=== PATIENT | female | born 2000 | race Caucasian/White ===

== ENCOUNTER 2019-02-27 23:25 | Emergency (ER) | payer OTHER ==
--- NOTE | 2019-02-28 00:41 | ED ---
General Adult HPI - General Source: patient Mode of arrival: wheelchair Limitations: no limitations <Bobby Etienne Enrique - Last Filed: 02/28/19 00:41> <OlvinkvngNaren - Last Filed: 02/28/19 03:36> - General Chief complaint: Abdominal Pain Stated complaint: Abdominal Pain Time Seen by Provider: 02/28/19 00:31 - History of Present Illness Initial comments: Dictation was produced using [employer] dictation software. please excuse any grammatical, word or spelling errors. Chief Complaint: 18-year-old female presents with right lower quadrant abdominal pain 1 day. History of Present Illness: Patient is a 18-year-old female she denies any past medical history. Patient states that she has been having suprapubic/right lower quadrant pain 1 day. Patient has any nausea or vomiting. She states pain radiates to her back. Patient was concerned that she is having appendicitis. She denies any fever however does complain of some chills. Patient has any urinary symptoms. Patient denies however is sexually active. She denies history of sexually transmitted disease. Patient reports that her pain is worse with palpation. She states pain is more localized to her right abdomen radiation to the back. She also reports dyschezia. The ROS documented in this emergency department record has been reviewed and confirmed by me. Those systems with pertinent positive or negative responses have been documented in the HPI. All other systems are other negative and/or noncontributory. PHYSICAL EXAM: General Impression: Alert and oriented x3, not in acute distress HEENT: Normocephalic atraumatic, extra-ocular movements intact, pupils equal and reactive to light bilaterally, mucous membranes moist. Cardiovascular: Heart regular rate and rhythm, S1&S2 audible, no murmurs, rubs or gallops Chest: Lungs clear to auscultation bilaterally, no rhonchi, no wheeze, no rales Abdomen: Tenderness to palpation over the suprapubic area. No rebound tenderness Musculoskeletal: Pulses present and equal in all extremities, no peripheral edema Motor: no focal deficits noted Neurological: CN II-XII grossly intact, no focal motor or sensory deficits noted Skin: Intact with no visualized rashes Psych: Normal affect and mood ED course: 18 yo Female presents with clinical presentation concerning for acute appendicitis versus surgical abdomen. As upon arrival are within acceptable limits. Patient is sent out to Dr. Small for follow-up of lab studies and imaging studies. (Bobby Etienne) - Related Data Home Medications Medication Instructions Recorded Confirmed No Known Home Medications 12/27/18 02/28/19 Allergies Allergy/AdvReac Type Severity Reaction Status Date / Time levofloxacin [From Levaquin] Allergy Unknown Verified 12/27/18 21:45 sumatriptan [From Imitrex] Allergy Unknown Verified 12/27/18 21:45 sumatriptan succinate Allergy Unknown Verified 12/27/18 21:45 [From Imitrex] Review of Systems ROS Other: All systems not noted in ROS Statement are negative. <Bobby Etienne - Last Filed: 02/28/19 00:41> ROS Other: All systems not noted in ROS Statement are negative. <Naren Cast - Last Filed: 02/28/19 03:36> ROS Statement: Those systems with pertinent positive or pertinent negative responses have been documented in the HPI. Past Medical History Past Medical History: Asthma Additional Past Medical History / Comment(s): migraines History of Any Multi-Drug Resistant Organisms: None Reported Past Surgical History: Adenoidectomy, Tonsillectomy Additional Past Surgical History / Comment(s): cyst from arm Past Psychological History: Anxiety Smoking Status: Current every day smoker Past Alcohol Use History: Rare Past Drug Use History: None Reported <Bobby Etienne - Last Filed: 02/28/19 00:41> General Exam Limitations: no limitations <Bobby Etienne - Last Filed: 02/28/19 00:41> Course Vital Signs 02/28/19 02/28/19 00:21 01:44 Temperature 97.7 F Pulse Rate 86 91 Respiratory 20 18 Rate Blood Pressure 123/85 116/86 O2 Sat by Pulse 96 99 Oximetry Medical Decision Making - Lab Data Result diagrams: 02/28/19 00:57 02/28/19 00:57 <Naren Cast - Last Filed: 02/28/19 03:36> - Lab Data Lab Results 02/28/19 02/28/19 02/28/19 Range/Units 00:57 00:57 00:57 WBC 11.1 H (4.0-11.0) k/uL RBC 4.68 (3.80-5.40) m/uL Hgb 14.2 (11.4-16.0) gm/dL Hct 41.7 (34.0-46.0) % MCV 89.1 (80.0-100.0) fL MCH 30.3 (25.0-35.0) pg MCHC 34.0 (31.0-37.0) g/dL RDW 13.7 (11.5-15.5) % Plt Count 282 (150-450) k/uL Neutrophils % 62 % Lymphocytes % 26 % Monocytes % 5 % Eosinophils % 5 % Basophils % 0 % Neutrophils # 6.9 (1.3-7.7) k/uL Lymphocytes # 2.9 (1.0-4.8) k/uL Monocytes # 0.6 (0-1.0) k/uL Eosinophils # 0.6 (0-0.7) k/uL Basophils # 0.0 (0-0.2) k/uL Sodium 140 (137-145) mmol/L Potassium 3.8 (3.5-5.1) mmol/L Chloride 108 H (98-107) mmol/L Carbon Dioxide 24 (22-30) mmol/L Anion Gap 8 mmol/L BUN 12 (7-17) mg/dL Creatinine 0.70 (0.52-1.04) mg/dL Est GFR (CKD-EPI)AfAm >90 (>60 ml/min/1.73 sqM) Est GFR (CKD-EPI)NonAf >90 (>60 ml/min/1.73 sqM) Glucose 94 (74-99) mg/dL Calcium 9.9 (8.4-10.2) mg/dL Total Bilirubin 0.4 (0.2-1.3) mg/dL AST 17 (14-36) U/L ALT 14 (9-52) U/L Alkaline Phosphatase 74 (38-126) U/L Total Protein 7.3 (6.3-8.2) g/dL Albumin 4.6 (3.5-5.0) g/dL Amylase 33 (30-110) U/L Lipase 49 (23-300) U/L Urine Color Urine Appearance (Clear) Urine pH (5.0-8.0) Ur Specific Bath (1.001-1.035) Urine Protein (Negative) Urine Glucose (UA) (Negative) Urine Ketones (Negative) Urine Blood (Negative) Urine Nitrite (Negative) Urine Bilirubin (Negative) Urine Urobilinogen (<2.0) mg/dL Ur Leukocyte Esterase (Negative) Urine HCG, Qual Not Detected (Not Detectd) 02/28/19 Range/Units 00:57 WBC (4.0-11.0) k/uL RBC (3.80-5.40) m/uL Hgb (11.4-16.0) gm/dL Hct (34.0-46.0) % MCV (80.0-100.0) fL MCH (25.0-35.0) pg MCHC (31.0-37.0) g/dL RDW (11.5-15.5) % Plt Count (150-450) k/uL Neutrophils % % Lymphocytes % % Monocytes % % Eosinophils % % Basophils % % Neutrophils # (1.3-7.7) k/uL Lymphocytes # (1.0-4.8) k/uL Monocytes # (0-1.0) k/uL Eosinophils # (0-0.7) k/uL Basophils # (0-0.2) k/uL Sodium (137-145) mmol/L Potassium (3.5-5.1) mmol/L Chloride (98-107) mmol/L Carbon Dioxide (22-30) mmol/L Anion Gap mmol/L BUN (7-17) mg/dL Creatinine (0.52-1.04) mg/dL Est GFR (CKD-EPI)AfAm (>60 ml/min/1.73 sqM) Est GFR (CKD-EPI)NonAf (>60 ml/min/1.73 sqM) Glucose (74-99) mg/dL Calcium (8.4-10.2) mg/dL Total Bilirubin (0.2-1.3) mg/dL AST (14-36) U/L ALT (9-52) U/L Alkaline Phosphatase (38-126) U/L Total Protein (6.3-8.2) g/dL Albumin (3.5-5.0) g/dL Amylase (30-110) U/L Lipase (23-300) U/L Urine Color Yellow Urine Appearance Clear (Clear) Urine pH 6.5 (5.0-8.0) Ur Specific Bath 1.031 (1.001-1.035) Urine Protein Trace H (Negative) Urine Glucose (UA) Negative (Negative) Urine Ketones Negative (Negative) Urine Blood Negative (Negative) Urine Nitrite Negative (Negative) Urine Bilirubin Negative (Negative) Urine Urobilinogen 2.0 (<2.0) mg/dL Ur Leukocyte Esterase Negative (Negative) Urine HCG, Qual (Not Detectd) Disposition <Bobby Etienne - Last Filed: 02/28/19 00:41> Is patient prescribed a controlled substance at d/c from ED?: No <Naren Cast - Last Filed: 02/28/19 03:36> Clinical Impression: Abdominal pain, Ovarian cyst Disposition: HOME SELF-CARE Condition: Good Instructions (If sedation given, give patient instructions): Ovarian Cyst (ED), Abdominal Pain (ED) Referrals: None,Stated [Primary Care Provider] - 1-2 days Kirstie Munoz DO [Doctor of Osteopathic Medicine] - 1-2 days
[2019-02-28] MEDS ORDERED: MORPHINE SULFATE 4 MG/ML SYRINGE IVP STA (00:42)
[2019-02-28 01:12] LABS: Appearance,Urine Clear (Clear); Bilirubin,Urine Negative (Negative); Blood,Urine Negative (Negative); Color,Urine Yellow; Glucose,Urine (UA) Negative (Negative); Ketones,Urine Negative (Negative); Leukocyte Esterase,Urine Negative (Negative); Nitrite,Urine Negative (Negative); PH, Urine 6.5 (5.0-8.0); Protein,Urine Trace (Negative); Specific Gravity,Urine 1.031 (1.001-1.035)
[2019-02-28 01:14] LABS: Basophils % (A) 0 %; Eosinophils # (A) 0.6 k/uL (0-0.7); Eosinophils % (A) 5 %; HCT 41.7 % (34.0-46.0); HGB 14.2 gm/dL (11.4-16.0); Lymphocytes # (A) 2.9 k/uL (1.0-4.8); Lymphocytes % (A) 26 %; MCH 30.3 pg (25.0-35.0); MCV 89.1 fL (80.0-100.0); Monocytes # (A) 0.6 k/uL (0-1.0); Monocytes % (A) 5 %; Neutrophils # (A) 6.9 k/uL (1.3-7.7); Neutrophils % (A) 62 %; Platelet Count 282 k/uL (150-450); RBC 4.68 m/uL (3.80-5.40); RDW 13.7 % (11.5-15.5); WBC 11.1 k/uL (4.0-11.0)
[2019-02-28 01:27] LABS: ALT 14 U/L (9-52); AST 17 U/L (14-36); Albumin 4.6 g/dL (3.5-5.0); Alkaline Phosphatase 74 U/L (38-126); Amylase 33 U/L (30-110); Anion Gap 8 mmol/L; Blood Urea Nitrogen 12 mg/dL (7-17); Calcium 9.9 mg/dL (8.4-10.2); Carbon Dioxide 24 mmol/L (22-30); Chloride 108 mmol/L (98-107); Glucose 94 mg/dL (74-99); Lipase 49 U/L (23-300); Potassium 3.8 mmol/L (3.5-5.1); Sodium 140 mmol/L (137-145); Total Bilirubin 0.4 mg/dL (0.2-1.3); Total Protein 7.3 g/dL (6.3-8.2)
[2019-02-28 01:45] VITALS: RESP 18
--- NOTE | 2019-02-28 02:26 | CT ---
EXAM: CT Abdomen and Pelvis With Intravenous Contrast CLINICAL HISTORY: abdominal pain TECHNIQUE: Axial computed tomography images of the abdomen and pelvis with intravenous contrast. DLP is 923.5 mGy-cm. This CT exam was performed using one or more of the following dose reduction techniques: automated exposure control, adjustment of the mA and/or kV according to patient size, and/or use of iterative reconstruction technique. Coronal and sagittal reconstructions are performed COMPARISON: No relevant prior studies available. FINDINGS: Lung bases: Unremarkable. No mass. No consolidation. ABDOMEN: Liver: 1.5 x 2.5 cm hypoenhancing lesion in anterior left lobe the liver, likely a hemangioma. Gallbladder and bile ducts: Unremarkable. No calcified stones. No ductal dilation. Pancreas: Unremarkable. No mass. No ductal dilation. Spleen: Unremarkable. No splenomegaly. Adrenals: Unremarkable. No mass. Kidneys and ureters: Unremarkable. No solid mass. No hydronephrosis. Stomach and bowel: Unremarkable. No obstruction. No mucosal thickening. PELVIS: Appendix: Not definitively visualized. Bladder: Unremarkable. No mass. Reproductive: 2 adjacent cystic lesions of right adnexa, together measuring about 6 X 5.1 x 2.7 cm, best seen on series 201 image 75. ABDOMEN and PELVIS: Intraperitoneal space: Unremarkable. No free air. No significant fluid collection. Bones/joints: No acute fracture. No dislocation. Soft tissues: Unremarkable. Vasculature: Unremarkable. No abdominal aortic aneurysm. Lymph nodes: Unremarkable. No enlarged lymph nodes. IMPRESSION: 2 adjacent cystic lesions of right adnexa, together measuring about 6 X 5. 1 x 2.7 cm, likely ovarian cysts. No free pelvic fluid.
[2019-02-28] MEDS ORDERED: MORPHINE SULFATE 4 MG/ML SYRINGE IV STA (03:35)
[2019-02-28 03:52] VITALS: BP 136/98; PULSE 90; TEMP 98.1
== END 2019-02-28 03:51 | disposition home or self-care (01) ==
LOC: EC 23:25
DX: N83.201 Unspecified ovarian cyst, right side (principal); F17.200 Nicotine dependence, unspecified, uncomplicated; Z88.1 Allergy status to other antibiotic agents; Z88.8 Allergy status to other drugs, medicaments and biological substances
CPT/HCPCS: 99284 ×2; 96374 ×2; 96376 ×2; 36415; 80053; 82150; 83690; 85025; 81003; 81025; 87086; 74177; J2270; Q9967

== ENCOUNTER → 2019-10-27 | Outpatient (CLI) | payer OTHER ==
--- NOTE | 2019-10-28 05:00 | MR ---
EXAMINATION TYPE: MR brain wo con DATE OF EXAM: 10/27/2019 COMPARISON: Correlation CT 12/28/2018 HISTORY: 19 year old female Headaches, nausea TECHNIQUE: Multiplanar, multisequence images of the brain and brainstem were acquired without IV con trast. Diffusion weighted imaging is performed. FINDINGS: No evidence for acute infarction, hemorrhage, mass, mass effect, midline shift, herniation, effacemen t of basal cisterns, or extra-axial fluid collection. The ventricles and sulci are age-appropriate. Major intracranial flow voids are intact. T2/FLAIR weighted sequences show no white matter signal abnormality. Midline structures demonstrate normal morphology. Minimal 2 mm of right-sided cerebellar tonsillar ec topia. Otherwise, the craniocervical junction is normal. Leftward nasal septal deviation with scattered mild mucosal thickening ethmoid air cells. Globes appe ar intact. IMPRESSION: 1. Minimal, benign right-sided cerebellar tonsillar ectopia of 2 mm. 2. Otherwise, no intracranial abnormality seen. 3. Leftward nasal septal deviation and mild chronic ethmoid sinus disease.
== END | disposition home or self-care (01) ==
LOC: RADMRIMAIN 15:43
PROVIDERS: ATTEND Family Medicine
DX: Q04.8 Other specified congenital malformations of brain (principal)
CPT/HCPCS: 70551

== ENCOUNTER 2019-12-11 09:22 | Emergency (ER) | payer OTHER ==
[2019-12-11 09:27] VITALS: BP 137/93; PULSE 102; RESP 18; TEMP 98.1
--- NOTE | 2019-12-11 09:52 | ED ---
Skin/Abscess/FB HPI - General Chief complaint: Skin/Abscess/Foreign Body Stated complaint: poss allergic reaction Time Seen by Provider: 12/11/19 09:30 Source: patient, RN notes reviewed Mode of arrival: ambulatory Limitations: no limitations - History of Present Illness Initial comments: 19-year-old female presents emergency Department chief complaint of bilateral hand irritation, rash. Patient states that this started 2 weeks ago after work. 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 Patient states that the rashes not improved. She's tried some steroid cream which seems to help her batista were also some generic lotions. Patient denies any history of skin disorders she denies any new harsh chemicals that she was exposed to no new medications. - Related Data Previous Rx's Medication Instructions Recorded Clobetasol Propionate [Temovate 1 applic TOPICAL BID #30 gm 12/11/19 0.05% Oint] Allergies Allergy/AdvReac Type Severity Reaction Status Date / Time levofloxacin [From Levaquin] Allergy Unknown Verified 12/11/19 09:27 sumatriptan [From Imitrex] Allergy Unknown Verified 12/11/19 09:27 sumatriptan succinate Allergy Unknown Verified 12/11/19 09:27 [From Imitrex] Review of Systems ROS Statement: Those systems with pertinent positive or pertinent negative responses have been documented in the HPI. ROS Other: All systems not noted in ROS Statement are negative. Past Medical History Past Medical History: Asthma Additional Past Medical History / Comment(s): migraines History of Any Multi-Drug Resistant Organisms: None Reported Past Surgical History: Adenoidectomy, Tonsillectomy Additional Past Surgical History / Comment(s): cyst from arm Past Psychological History: Anxiety Smoking Status: Current every day smoker Past Alcohol Use History: Rare Past Drug Use History: None Reported General Exam Limitations: no limitations General appearance: alert, in no apparent distress Head exam: Present: atraumatic, normocephalic, normal inspection Eye exam: Present: normal appearance, PERRL, EOMI. Absent: scleral icterus, conjunctival injection, periorbital swelling ENT exam: Present: normal exam, normal oropharynx, mucous membranes moist Neck exam: Present: normal inspection. Absent: tenderness, meningismus, lymphadenopathy Respiratory exam: Present: normal lung sounds bilaterally. Absent: respiratory distress, wheezes, rales, rhonchi, stridor Cardiovascular Exam: Present: regular rate, normal rhythm, normal heart sounds. Absent: systolic murmur, diastolic murmur, rubs, gallop, clicks Skin exam: Present: warm, dry, intact, normal color, rash (Bilateral hands across MCP region there is dry scaly rash noted) Course Vital Signs 12/11/19 09:22 Temperature 98.1 F Pulse Rate 102 H Respiratory 18 Rate Blood Pressure 137/93 O2 Sat by Pulse 98 Oximetry Medical Decision Making - Medical Decision Making Patient appears to have atopic dermatitis. We have given steroid cream advise use Eucerin and Aquaphor for lotions. Disposition Clinical Impression: Atopic dermatitis Disposition: HOME SELF-CARE Condition: Stable Instructions (If sedation given, give patient instructions): Eczema (ED) Additional Instructions: Please return to the Emergency Department if symptoms worsen or any other co ncerns. Prescriptions: Clobetasol Propionate [Temovate 0.05% Oint] 1 applic TOPICAL BID #30 gm Is patient prescribed a controlled substance at d/c from ED?: No Referrals: Nel Sanders MD [Primary Care Provider] - 1-2 days Time of Disposition: 09:51
== END 2019-12-11 10:03 | disposition home or self-care (01) ==
LOC: EC 09:22
DX: L20.9 Atopic dermatitis, unspecified (principal); F17.200 Nicotine dependence, unspecified, uncomplicated; Z88.1 Allergy status to other antibiotic agents; Z88.8 Allergy status to other drugs, medicaments and biological substances; Z98.890 Other specified postprocedural states
CPT/HCPCS: 99282

== ENCOUNTER 2019-12-31 11:30 | Emergency (ER) | payer OTHER ==
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
[2019-12-31 12:38] VITALS: BP 137/78; PULSE 90; RESP 16; TEMP 98.1
== END 2019-12-31 12:36 | disposition home or self-care (01) ==
LOC: EC 11:30
DX: T25.122A Burn of first degree of left foot, initial encounter (principal); T23.101A Burn of first degree of right hand, unspecified site, initial encounter; T31.0 Burns involving less than 10% of body surface; F17.200 Nicotine dependence, unspecified, uncomplicated; Z88.1 Allergy status to other antibiotic agents; Z88.8 Allergy status to other drugs, medicaments and biological substances; X10.2XXA Contact with fats and cooking oils, initial encounter; Y93.G3 Activity, cooking and baking
CPT/HCPCS: 16020; 99283

== ENCOUNTER → 2020-05-20 | Outpatient (CLI) | payer OTHER ==
--- NOTE | 2020-05-20 23:27 | XR ---
EXAMINATION TYPE: XR hand complete bilateral DATE OF EXAM: 05/20/2020 CLINICAL HISTORY: Bilateral hand pain TECHNIQUE: Frontal, lateral and oblique images of the bilateral hands are obtained. COMPARISON: Left hand radiograph 12/08/2009 FINDINGS: There is no acute fracture/dislocation evident in the bilateral hands. The joint spaces ap pear within normal limits. Normal osseous mineralization. The overlying soft tissue appears unremar kable. IMPRESSION: Unremarkable radiographs of the bilateral hands.
--- NOTE | 2020-05-21 09:38 | XR ---
EXAMINATION TYPE: XR Hip Bilateral Complete, XR femur bilateral DATE OF EXAM: 05/20/2020 CLINICAL HISTORY: Bilateral hip pain TECHNIQUE: AP and frogleg views of the bilateral hips are obtained. 2 views of the bilateral femurs are obtained. COMPARISON: None. FINDINGS: There is no acute fracture or dislocation of the bilateral hips. The hip joint space appe ars within normal limits. The bilateral knee joints are unremarkable. There is an eccentric cortical 1.8 cm nonaggressive sclerotic focus of the distal posterior left femur, likely benign fibrous cortic al defect. Normal osseous mineralization. The overlying soft tissue appears unremarkable. IMPRESSION: 1. There is no acute fracture or dislocation of the bilateral hips or bilateral femurs. 2. Distal left femoral 1.8 cm nonaggressive lesion likely benign fibrous cortical defect.
== END | disposition home or self-care (01) ==
LOC: RADXRMAIN 14:29
PROVIDERS: ATTEND Family Medicine
DX: M79.641 Pain in right hand (principal); M79.642 Pain in left hand; M89.8X5 Other specified disorders of bone, thigh; M25.551 Pain in right hip; M25.552 Pain in left hip
CPT/HCPCS: 73521

== ENCOUNTER 2020-08-18 13:35 | Emergency (ER) | payer OTHER ==
[2020-08-18 13:48] VITALS: RESP 16; TEMP 99.1
[2020-08-18] MEDS ORDERED: SODIUM CHLORIDE 0.9% 1,000 ML IV STA (14:08)
--- NOTE | 2020-08-18 14:10 | ED ---
General Adult HPI - General Chief complaint: Abdominal Pain Stated complaint: Abd Pain Time Seen by Provider: 08/18/20 14:01 Source: patient, RN notes reviewed Mode of arrival: ambulatory Limitations: no limitations - History of Present Illness Initial comments: 19-year-old female with a past medical history of ovarian cyst presents to the emergency room for a chief complaint of abdominal pain. Patient reports she has lower abdominal pain for the past 3 days. She denies fever. She denies nausea vomiting diarrhea. States it is across her lower abdomen on both sides. Patient states she has had an over this feels similar. However patient reports that pain seems to be worsening. She denies any fevers.Patient has no other complaints at this time including shortness of breath, chest pain, nausea or vomiting, headache, or visual changes. - Related Data Home Medications Medication Instructions Recorded Confirmed Albuterol Sulfate [Proair Hfa] 1 - 2 puff INHALATION RT-Q6H PRN 08/18/20 08/18/20 [id number]-Zevv [id number] 2 tab PO HS PRN 08/18/20 08/18/20 [Excedrin] Ereabds-Zqag-Zqre [id number] 3 tab PO QAM PRN 08/18/20 08/18/20 [Excedrin] Allergies Allergy/AdvReac Type Severity Reaction Status Date / Time levofloxacin [From Levaquin] Allergy Unknown Verified 08/18/20 16:19 sumatriptan [From Imitrex] Allergy Unknown Verified 08/18/20 16:19 sumatriptan succinate Allergy Unknown Verified 08/18/20 16:19 [From Imitrex] Review of Systems ROS Statement: Those systems with pertinent positive or pertinent negative responses have been documented in the HPI. ROS Other: All systems not noted in ROS Statement are negative. Past Medical History Past Medical History: Asthma Additional Past Medical History / Comment(s): migraines ,ovarian cyst History of Any Multi-Drug Resistant Organisms: None Reported Past Surgical History: Adenoidectomy, Tonsillectomy Additional Past Surgical History / Comment(s): cyst from arm Past Psychological History: Anxiety, Depression Smoking Status: Current every day smoker Past Alcohol Use History: None Reported Past Drug Use History: None Reported General Exam Limitations: no limitations General appearance: alert, in no apparent distress Head exam: Present: atraumatic, normocephalic, normal inspection Eye exam: Present: normal appearance, PERRL, EOMI. Absent: scleral icterus, conjunctival injection, periorbital swelling ENT exam: Present: normal exam, mucous membranes moist Neck exam: Present: normal inspection, full ROM. Absent: tenderness, meningismus, lymphadenopathy Respiratory exam: Present: normal lung sounds bilaterally. Absent: respiratory distress, wheezes, rales, rhonchi, stridor Cardiovascular Exam: Present: regular rate, normal rhythm, normal heart sounds. Absent: systolic murmur, diastolic murmur, rubs, gallop, clicks GI/Abdominal exam: Present: soft, tenderness (generalized lower abdominal tenderness, ), normal bowel sounds. Absent: distended, guarding, rebound, rigid Neurological exam: Present: alert Course Vital Signs 08/18/20 13:46 Temperature 99.1 F Pulse Rate 93 Respiratory 16 Rate Blood Pressure 124/75 O2 Sat by Pulse 99 Oximetry Medical Decision Making - Medical Decision Making Vitals are stable. Patient is afebrile. States she has been checking her temperatures at home for work and has not had any. CBC shows no leukocytosis. CMP unremarkable. Urinalysis unremarkable. Ultrasound shows a left ovarian cyst with free fluid within the cul-de-sac. Possible ruptured ovarian cyst. Appendix is incompletely visualized. Portions visualized appear normal. Acute appendicitis cannot be excluded. No is made of small lymph nodes in the right inguinal region. At this time reevaluated patient and did recommend a CAT scan to rule out appendicitis. Patient states she is hungry and wants to go home. She is feeling better after pain meds. She reports that she is aware I cannot rule out appendicitis without doing the CAT scan and is aware of these risks. If patient has fevers or any worsening symptoms she is agreeable to returning to the emergency room. She is aware she is welcome at any time.I discussed this case with attending Dr. Benitez who agrees with this assessment and treatment plan. - Lab Data Result diagrams: 08/18/20 14:08 08/18/20 14:08 Lab Results 08/18/20 08/18/20 08/18/20 Range/Units 14:08 14:08 14:08 WBC 8.6 (4.0-11.0) k/uL RBC 4.43 (3.80-5.40) m/uL Hgb 14.3 (11.4-16.0) gm/dL Hct 41.2 (34.0-46.0) % MCV 92.9 (80.0-100.0) fL MCH 32.3 (25.0-35.0) pg MCHC 34.7 (31.0-37.0) g/dL RDW 12.7 (11.5-15.5) % Plt Count 230 (150-450) k/uL MPV 7.3 Neutrophils % 61 % Lymphocytes % 28 % Monocytes % 5 % Eosinophils % 3 % Basophils % 1 % Neutrophils # 5.3 (1.3-7.7) k/uL Lymphocytes # 2.4 (1.0-4.8) k/uL Monocytes # 0.4 (0-1.0) k/uL Eosinophils # 0.3 (0-0.7) k/uL Basophils # 0.1 (0-0.2) k/uL Sodium (137-145) mmol/L Potassium (3.5-5.1) mmol/L Chloride (98-107) mmol/L Carbon Dioxide (22-30) mmol/L Anion Gap mmol/L BUN (7-17) mg/dL Creatinine (0.52-1.04) mg/dL Est GFR (CKD-EPI)AfAm (>60 ml/min/1.73 sqM) Est GFR (CKD-EPI)NonAf (>60 ml/min/1.73 sqM) Glucose (74-99) mg/dL Calcium (8.4-10.2) mg/dL Total Bilirubin (0.2-1.3) mg/dL AST (14-36) U/L ALT (4-34) U/L Alkaline Phosphatase (38-126) U/L Total Protein (6.3-8.2) g/dL Albumin (3.5-5.0) g/dL Amylase (30-110) U/L Lipase (23-300) U/L Urine Color Yellow Urine Appearance Cloudy H (Clear) Urine pH 5.5 (5.0-8.0) Ur Specific [place] 1.028 (1.001-1.035) Urine Protein Trace H (Negative) Urine Glucose (UA) Negative (Negative) Urine Ketones Negative (Negative) Urine Blood Trace H (Negative) Urine Nitrite Negative (Negative) Urine Bilirubin Negative (Negative) Urine Urobilinogen <2.0 (<2.0) mg/dL Ur Leukocyte Esterase Large H (Negative) Urine RBC 8 H (0-5) /hpf Urine WBC 9 H (0-5) /hpf Ur Squamous Epith Cells 5 H (0-4) /hpf Urine Mucus Few H (None) /hpf Urine HCG, Qual Not Detected (Not Detectd) 08/18/20 Range/Units 14:08 WBC (4.0-11.0) k/uL RBC (3.80-5.40) m/uL Hgb (11.4-16.0) gm/dL Hct (34.0-46.0) % MCV (80.0-100.0) fL MCH (25.0-35.0) pg MCHC (31.0-37.0) g/dL RDW (11.5-15.5) % Plt Count (150-450) k/uL MPV Neutrophils % % Lymphocytes % % Monocytes % % Eosinophils % % Basophils % % Neutrophils # (1.3-7.7) k/uL Lymphocytes # (1.0-4.8) k/uL Monocytes # (0-1.0) k/uL Eosinophils # (0-0.7) k/uL Basophils # (0-0.2) k/uL Sodium 139 (137-145) mmol/L Potassium 4.1 (3.5-5.1) mmol/L Chloride 110 H (98-107) mmol/L Carbon Dioxide 20 L (22-30) mmol/L Anion Gap 9 mmol/L BUN 12 (7-17) mg/dL Creatinine 0.61 (0.52-1.04) mg/dL Est GFR (CKD-EPI)AfAm >90 (>60 ml/min/1.73 sqM) Est GFR (CKD-EPI)NonAf >90 (>60 ml/min/1.73 sqM) Glucose 109 H (74-99) mg/dL Calcium 9.5 (8.4-10.2) mg/dL Total Bilirubin 0.5 (0.2-1.3) mg/dL AST 23 (14-36) U/L ALT 15 (4-34) U/L Alkaline Phosphatase 63 (38-126) U/L Total Protein 7.0 (6.3-8.2) g/dL Albumin 4.2 (3.5-5.0) g/dL Amylase <30 L (30-110) U/L Lipase 46 (23-300) U/L Urine Color Urine Appearance (Clear) Urine pH (5.0-8.0) Ur Specific Crossroads (1.001-1.035) Urine Protein (Negative) Urine Glucose (UA) (Negative) Urine Ketones (Negative) Urine Blood (Negative) Urine Nitrite (Negative) Urine Bilirubin (Negative) Urine Urobilinogen (<2.0) mg/dL Ur Leukocyte Esterase (Negative) Urine RBC (0-5) /hpf Urine WBC (0-5) /hpf Ur Squamous Epith Cells (0-4) /hpf Urine Mucus (None) /hpf Urine HCG, Qual (Not Detectd) Disposition Clinical Impression: Abdominal pain Disposition: HOME SELF-CARE Condition: Good Instructions (If sedation given, give patient instructions): Abdominal Pain (ED) Additional Instructions: Please monitor temperature for fever. If you have worsening symptoms or worsening abdominal pain you need to return to the emergency room for a CAT scan to rule out appendicitis. Is patient prescribed a controlled substance at d/c from ED?: No Referrals: Nel Sanders MD [Primary Care Provider] - 1-2 days Time of Disposition: 17:13
[2020-08-18 14:44] LABS: Basophils # (A) 0.1 k/uL (0-0.2); Basophils % (A) 1 %; Eosinophils # (A) 0.3 k/uL (0-0.7); Eosinophils % (A) 3 %; HCT 41.2 % (34.0-46.0); HGB 14.3 gm/dL (11.4-16.0); Lymphocytes # (A) 2.4 k/uL (1.0-4.8); Lymphocytes % (A) 28 %; MCH 32.3 pg (25.0-35.0); MCHC 34.7 g/dL (31.0-37.0); MCV 92.9 fL (80.0-100.0); Mean Platelet Volume 7.3; Monocytes # (A) 0.4 k/uL (0-1.0); Monocytes % (A) 5 %; Neutrophils # (A) 5.3 k/uL (1.3-7.7); Neutrophils % (A) 61 %; Platelet Count 230 k/uL (150-450); RBC 4.43 m/uL (3.80-5.40); RDW 12.7 % (11.5-15.5); WBC 8.6 k/uL (4.0-11.0)
[2020-08-18 14:48] LABS: Appearance,Urine Cloudy (Clear); Bilirubin,Urine Negative (Negative); Blood,Urine Trace (Negative); Color,Urine Yellow; Glucose,Urine (UA) Negative (Negative); Ketones,Urine Negative (Negative); Leukocyte Esterase,Urine Large (Negative); Mucus,Urine Few /hpf; Nitrite,Urine Negative (Negative); PH, Urine 5.5 (5.0-8.0); Protein,Urine Trace (Negative); RBC,Urine 8 /hpf (0-5); Specific Gravity,Urine 1.028 (1.001-1.035); Squamous Epithelial Cell,Urine 5 /hpf (0-4); Urobilinogen,Urine <2.0 mg/dL (<2.0); WBC,Urine 9 /hpf (0-5)
[2020-08-18 14:53] LABS: ALT 15 U/L (4-34); AST 23 U/L (14-36); African American GFR (CKD) >90 (>60 ml/min/1.73 sqM); Albumin 4.2 g/dL (3.5-5.0); Alkaline Phosphatase 63 U/L (38-126); Amylase <30 U/L (30-110); Anion Gap 9 mmol/L; Blood Urea Nitrogen 12 mg/dL (7-17); Calcium 9.5 mg/dL (8.4-10.2); Carbon Dioxide 20 mmol/L (22-30); Chloride 110 mmol/L (98-107); Glucose 109 mg/dL (74-99); Lipase 46 U/L (23-300); Non-African American GFR(CKD) >90 (>60 ml/min/1.73 sqM); Potassium 4.1 mmol/L (3.5-5.1); Sodium 139 mmol/L (137-145); Total Bilirubin 0.5 mg/dL (0.2-1.3)
[2020-08-18] MEDS ORDERED: KETOROLAC 15 MG/ML 1 ML VIAL IVP STA (15:20)
--- NOTE | 2020-08-18 16:25 | US ---
EXAMINATION TYPE: US abdomen APPY DATE OF EXAM: 08/18/2020 COMPARISON: NONE CLINICAL HISTORY: pain RLQ. Patient stated has bilateral pelvic pain x 3 days; HX of ovarian cysts. APPENDIX AP Diameter (normal < 6mm): 3.1 mm Measured outer wall to outer wall. Is the appendix seen in its entirety from the proximal cecum to distal end: no Is the appendix compressible: area thought to be seen is compressible Is an appendicolith present: no Is there inflammatory changes or free fluid present: no Couple of lymph nodes are seen in right groin: superior right groin node = 1.3 x 0.6 x 0.3cm and inf erior node = 0.8 x 0.7 x 0.4cm. IMPRESSION: 1. Appendix is incompletely visualized. Portions visualized appear normal. Acute appendicitis cannot be excluded on the basis of this examination, clinical management is recommended. 2. Note is made of small lymph nodes within the right inguinal region.
--- NOTE | 2020-08-18 16:33 | US ---
EXAMINATION TYPE: US transvaginal DATE OF EXAM: 08/18/2020 COMPARISON: CT CLINICAL HISTORY: pain, h/o cysts. Bilateral pelvic pain x 3 days; LMP about 30 days ago TECHNIQUE: TV . Transvaginal sonographic images were acquired on EC patient. Date of LMP: 30 days ago EXAM MEASUREMENTS: Uterus: 8.1 x 4.8 x 3.7 cm Endometrial Stripe: 1.0 cm Right Ovary: 2.8 x3.1 x 1.4 cm Left Ovary: 4.2 x 2.6 x 2.7 cm 1. Uterus: Anteverted 2. Endometrium: thickness is wnl for day 30 LMP 3. Right Ovary: multicystic with largest simple cyst = 0.7 x 0.6 x 0.6cm 4. Left Ovary: large involuting complex cyst = 2.5 x 2.3 x 1.9cm Spectral, color and waveform doppler imaging shows good arterial and venous flow within the ovaries ; there is no evidence for ovarian torsion. 5. Bilateral Adnexa: wnl 6. Posterior cul-de-sac: free fluid seen = 2.2 x 3.3 x 1.0 x 0.529 = 3.8ml and is wnl. IMPRESSION: Left ovarian cyst. 2. Free fluid within the cul-de-sac.
[2020-08-18 17:31] VITALS: BP 130/87; PULSE 83
[2020-08-19 15:04] LABS: C. trachomatis,PCR Negative (Neg,Equiv); Chlamydia trachomatis Source Urine; N. gonorrhoeae,PCR Negative (Neg,Equiv); Neisseria Source Urine
== END 2020-08-18 17:20 | disposition home or self-care (01) ==
LOC: EC 13:35
DX: R10.32 Left lower quadrant pain (principal); R10.31 Right lower quadrant pain; N83.202 Unspecified ovarian cyst, left side; J45.909 Unspecified asthma, uncomplicated; G43.909 Migraine, unspecified, not intractable, without status migrainosus; F17.200 Nicotine dependence, unspecified, uncomplicated; Z88.1 Allergy status to other antibiotic agents; Z88.8 Allergy status to other drugs, medicaments and biological substances
CPT/HCPCS: 36415; 80053; 82150; 83690; 85025; 81001; 81025; 87491; 87591; 76705; 76830; 99284; 96374; 96361; J1885

== ENCOUNTER 2020-11-03 15:45 | Emergency (ER) | payer OTHER ==
--- NOTE | 2020-11-03 17:10 | ED ---
Fall HPI - General Chief Complaint: Fall Stated Complaint: [facility] - fall, rt hip pain Time Seen by Provider: 11/03/20 16:01 Source: patient Mode of arrival: ambulatory - History of Present Illness Initial Comments: 20-year-old feel presenting today for chief complaint of right hip low back pain after fall. Patient states that she slipped exiting a patient's house. Patient states she was at work. Patient states that she slipped onto her bottom and mostly has right hip pain she states she is mild right-sided low back pain. Patient denies any injury to the head neck abdomen chest knees ankles. Patient denies any numbness tingling or loss of sensation coolness pallor of the extremity she denies urinary retention or loss of bowel bladder control. Patient appears well nontoxic in no acute distress. - Related Data Home Medications Medication Instructions Recorded Confirmed Albuterol Sulfate [Proair Hfa] 1 - 2 puff INHALATION RT-Q6H PRN 08/18/20 11/03/20 [id number] [id number] 3 tab PO DAILY PRN 08/18/20 11/03/20 [Excedrin] Allergies Allergy/AdvReac Type Severity Reaction Status Date / Time levofloxacin [From Levaquin] Allergy Unknown Verified 11/03/20 16:35 sumatriptan [From Imitrex] Allergy Unknown Verified 11/03/20 16:35 sumatriptan succinate Allergy Unknown Verified 11/03/20 16:35 [From Imitrex] Review of Systems ROS Statement: Those systems with pertinent positive or pertinent negative responses have been documented in the HPI. ROS Other: All systems not noted in ROS Statement are negative. Past Medical History Past Medical History: Asthma Additional Past Medical History / Comment(s): migraines ,ovarian cyst History of Any Multi-Drug Resistant Organisms: None Reported Past Surgical History: Adenoidectomy, Tonsillectomy Additional Past Surgical History / Comment(s): cyst from arm Past Psychological History: Anxiety, Depression Smoking Status: Current every day smoker Past Alcohol Use History: None Reported Past Drug Use History: None Reported General Exam - General Exam Comments Initial Comments: General: The patient is awake and alert, in no distress, and does not appear acutely ill. Eye: Pupils are equal, round and reactive to light, extra-ocular movements are intact. No nystagmus. There is normal conjunctiva bilaterally. No signs of i cterus. Cardiovascular: There is a regular rate and rhythm. No murmur, rub or gallop is appreciated. Respiratory: Lungs are clear to auscultation, respirations are non-labored, breath sounds are equal. No wheezes, stridor, rales, or rhonchi. Gastrointestinal: Soft, non-distended, non-tender abdomen without masses or organomegaly noted. There is no rebound or guarding present. Musculoskeletal: Normal ROM, no tenderness. Strength 5/5 of the LE b/l. Sensation intact of the LE b/l. Radial and DP pulses equal bilaterally 2+. Neurological: A&O x 3. CN II-XII intact, There are no obvious motor or sensory deficits. Coordination appears grossly intact. Speech is normal. Skin: Skin is warm and dry and no rashes or lesions are noted. Psychiatric: Cooperative, appropriate mood & affect, normal judgment. Limitations: no limitations Course Vital Signs 11/03/20 15:58 Temperature 98.6 F Pulse Rate 92 Respiratory 16 Rate Blood Pressure 128/82 O2 Sat by Pulse 95 Oximetry Medical Decision Making - Medical Decision Making Pt xr (-). ambulating without difficulty. neurovascular intact. Denies head injury. this time feel patient is stable for discharge with outpatient [facility] follow-up patient states that she feels comfortable returning to work Sunday - Lab Data Lab Results 11/03/20 Range/Units 16:13 Urine HCG, Qual Not Detected (Not Detectd) Disposition Clinical Impression: Fall from slipping on ice, Right hip pain, Low back pain Disposition: HOME SELF-CARE Condition: Good Instructions (If sedation given, give patient instructions): Low Back Strain (ED), R.I.C.E. Treatment (ED) Additional Instructions: Please use medication as discussed. Please follow-up with family doctor in the next 2 days. Please return to emergency room if the symptoms increase or worsen or for any other concerns. Is patient prescribed a controlled substance at d/c from ED?: No Referrals: Nel Sanders MD [Primary Care Provider] - 1-2 days Time of Disposition: 17:48
--- NOTE | 2020-11-03 17:45 | XR ---
EXAMINATION TYPE: XR Hip RT and AP Pelvis DATE OF EXAM: 11/03/2020 COMPARISON: 05/20/2020 HISTORY: Hip pain TECHNIQUE: 3 views FINDINGS: Pelvic ring is intact. Proximal right femur and hip joint appear normal. There is no hip dy splasia. Sacroiliac joints appear normal. IMPRESSION: Normal right hip exam. No change.
--- NOTE | 2020-11-03 17:46 | XR ---
EXAMINATION TYPE: XR lumbar spine 2 or 3V DATE OF EXAM: 11/03/2020 COMPARISON: NONE HISTORY: Fall. Pain. TECHNIQUE: 3 views FINDINGS: Lumbar vertebra have normal spacing and alignment. Posterior elements are intact. Sacroilia c joints appear normal. IMPRESSION: Normal lumbar spine exam.
[2020-11-03 17:56] VITALS: BP 118/65; PULSE 77; RESP 20; TEMP 98.3
== END 2020-11-03 17:55 | disposition home or self-care (01) ==
LOC: EC 15:45
DX: M25.551 Pain in right hip (principal); M54.5 Low back pain; J45.909 Unspecified asthma, uncomplicated; F17.200 Nicotine dependence, unspecified, uncomplicated; Z88.1 Allergy status to other antibiotic agents; Z88.8 Allergy status to other drugs, medicaments and biological substances
CPT/HCPCS: 72100; 73502; 81025; 99283

== ENCOUNTER → 2020-11-04 | Outpatient (CLI) | payer OTHER ==
--- NOTE | 2020-11-04 12:51 | XR ---
Right femur HISTORY: Pain, S 76.811A, S 83.8X1A, trauma one day prior Frontal and lateral views the right femur submitted on 4 images correlated prior right femur 0 bone mineralization, joint spaces, alignment are maintained. IMPRESSION: No fracture or dislocation.
== END | disposition home or self-care (01) ==
LOC: RADXRMAIN 12:24
PROVIDERS: ATTEND Emergency Medicine
DX: S76.811A Strain of other specified muscles, fascia and tendons at thigh level, right thigh, initial encounter (principal); S83.8X1A Sprain of other specified parts of right knee, initial encounter

== ENCOUNTER 2021-01-13 00:53 | Emergency (ER) | payer OTHER ==
[2021-01-13 01:06] VITALS: BP 155/65; PULSE 99; RESP 20; TEMP 98.5
[2021-01-13] MEDS ORDERED: IBUPROFEN 600 MG TAB PO STA (02:40)
--- NOTE | 2021-01-13 02:43 | ED ---
Skin/Abscess/FB HPI - General Chief complaint: Skin/Abscess/Foreign Body Stated complaint: Female /Abscess Time Seen by Provider: 01/13/21 01:05 Source: patient Mode of arrival: wheelchair Limitations: no limitations - History of Present Illness Initial comments: 20-year-old female with past medical history of migraines and ovarian cyst who presents emergency room and was reported groin pain. Patient states that she began having a bump in her right groin 2 days ago. He has gotten progressively larger in size and started draining today. She went to urgent care where they placed her on Bactrim and Keflex. Patient was unsure she can take these medications in combination and therefore called the pharmacy. Pharmacy recommended that she follow up with the urgent care for an answer to this question. The urgent care was closed and therefore the patient came into the emergency department. Denies history of MRSA. No intravenous drug use history. Denies fevers or chills. No vaginal discharge. Denies concern for . Patient has yet to begin taking the antibiotic. No other alleviating, precipitating or modifying factors - Related Data Home Medications Medication Instructions Recorded Confirmed Albuterol Sulfate [Proair Hfa] 1 - 2 puff INHALATION RT-Q6H PRN 08/18/20 11/03/20 Ynolbto-Bust-Mata [id number] 3 tab PO DAILY PRN 08/18/20 11/03/20 [Excedrin] Allergies Allergy/AdvReac Type Severity Reaction Status Date / Time levofloxacin [From Levaquin] Allergy Unknown Verified 01/13/21 01:06 sumatriptan [From Imitrex] Allergy Unknown Verified 01/13/21 01:06 sumatriptan succinate Allergy Unknown Verified 01/13/21 01:06 [From Imitrex] Review of Systems ROS Statement: Those systems with pertinent positive or pertinent negative responses have been documented in the HPI. ROS Other: All systems not noted in ROS Statement are negative. Past Medical History Past Medical History: Asthma Additional Past Medical History / Comment(s): migraines ,ovarian cyst History of Any Multi-Drug Resistant Organisms: None Reported Past Surgical History: Adenoidectomy, Tonsillectomy Additional Past Surgical History / Comment(s): cyst from arm Past Psychological History: Anxiety, Depression Smoking Status: Current every day smoker Past Alcohol Use History: None Reported Past Drug Use History: None Reported General Exam Limitations: no limitations General appearance: alert, anxious Head exam: Present: atraumatic, normocephalic, normal inspection Skin exam: Present: other (right groin cellulitis - 8x6 cm. central abscess - 4 x 3 cm. not actively draining) Course Vital Signs 01/13/21 01:04 Temperature 98.5 F Pulse Rate 99 Respiratory 20 Rate Blood Pressure 155/65 O2 Sat by Pulse 99 Oximetry Procedures - Incision & Drainage Consent Obtained: written consent Site: other (groin) Size (cm): 8 Anesthetic Used: lidocaine 1% Amount (mLs): 16 I&D Cleaning Method: Chloroprep Scalpel Used: #11 I&D Drainage Obtained: Pus Culture Obtained?: Yes Complications: pain Patient Tolerated Procedure: no complications Medical Decision Making - Medical Decision Making Upon arrival patient is placed in room 11. A thorough history and physical exam was performed. I did discuss drainage of the patient's right groin abscess for which he did agree to. Ultrasound was used. Area was anesthetized and cleansed. I did use an 11 blade scalpel to make the most fluctuant area. There was release of approximately 8 mL of purulent drainage. I did culture this. Patient was given Motrin for pain control. Patient didn't fill her prescriptions and is instructed this time to go home and take the medications as directed. They may be taken accommodation. She needs to follow up with primary care doctor in 2-4 days. Return to the emergency room for any new or worsening symptoms. Keep the area clean, dry and intact and express the drainage as possible. Patient understood this. Given written and verbal discharge instructions and discharged home in stable condition - Lab Data Lab Results 01/13/21 Range/Units 02:41 Urine HCG, Qual Not Detected (Not Detectd) Disposition Clinical Impression: Abscess Disposition: HOME SELF-CARE Instructions (If sedation given, give patient instructions): Abscess Incision and Drainage (ED), Abscess (ED) Additional Instructions: Please keep the area clean, dry and covered. Express the wound to get all of the pus out of it. Take the antibiotics as directed. Return to the ED for any new or worsening symptoms. Is patient prescribed a controlled substance at d/c from ED?: No Referrals: Nel Sanders MD [Primary Care Provider] - 1-2 days Time of Disposition: 02:43
[2021-01-13] MEDS ORDERED: LIDOCAINE 1% INJ 10MG/ML (20 ML MDV) SQ ONE (02:46)
== END 2021-01-13 02:53 | disposition home or self-care (01) ==
LOC: EC 00:53
DX: L02.214 Cutaneous abscess of groin (principal); J45.909 Unspecified asthma, uncomplicated; G43.909 Migraine, unspecified, not intractable, without status migrainosus; F41.9 Anxiety disorder, unspecified; F32.9 Major depressive disorder, single episode, unspecified; F17.200 Nicotine dependence, unspecified, uncomplicated; Z79.51 Long term (current) use of inhaled steroids
CPT/HCPCS: 81025; 87070; 87205; 99283; 10060; J2001

== ENCOUNTER 2021-03-14 21:27 | Emergency (ER) | payer OTHER ==
[2021-03-14 21:36] VITALS: RESP 18; TEMP 98.5
--- NOTE | 2021-03-14 22:13 | ED ---
Skin/Abscess/FB HPI - General Chief complaint: Skin/Abscess/Foreign Body Stated complaint: boil Time Seen by Provider: 03/14/21 21:50 Source: patient, RN notes reviewed Mode of arrival: ambulatory Limitations: no limitations - History of Present Illness Initial comments: Patient is a 20-year-old female that presents to emergency room with a right groin abscess. She notes she was here a couple months ago for the same issue. She notes that she was expressing it as directed. She notes that it is smaller but is still of a heart. She notes that she put a Band-Aid over the other day and pulled it off and a small little tissue sac was protruding from it. She noted the sac was very tender and sensitive to touch. She notes that it was still draining when she squeezed it. She notes that she took her antibiotics and Motrin as prescribed. Patient did express that she would not like to have any more incision and drainage done on it as she had a traumatizing aches pains last time period as a numbing did not work. She stated that she try to follow- up with primary care but they don't schedule appointments until 8:30 in the morning. Patient stated that she would like to go home continue to express on her own with oral antibiotics and follow-up with dermatology. She denied any other complaints or issues. She denied chest pain first breath headache nausea vomiting diarrhea constipation fever fatigue chills. - Related Data Home Medications Medication Instructions Recorded Confirmed Albuterol Sulfate [Proair Hfa] 1 - 2 puff INHALATION RT-Q6H PRN 08/18/20 11/03/20 [id number] 3 tab PO DAILY PRN 08/18/20 11/03/20 [Excedrin] Previous Rx's Medication Instructions Recorded Doxycycline Monohydrate [Monodox] 100 mg PO Q12HR #14 cap 03/14/21 Allergies Allergy/AdvReac Type Severity Reaction Status Date / Time levofloxacin [From Levaquin] Allergy Unknown Verified 03/14/21 21:33 sumatriptan [From Imitrex] Allergy Unknown Verified 03/14/21 21:33 sumatriptan succinate Allergy Unknown Verified 03/14/21 21:33 [From Imitrex] Review of Systems ROS Statement: Those systems with pertinent positive or pertinent negative responses have been documented in the HPI. ROS Other: All systems not noted in ROS Statement are negative. Past Medical History Past Medical History: Asthma Additional Past Medical History / Comment(s): migraines ,ovarian cyst History of Any Multi-Drug Resistant Organisms: None Reported Past Surgical History: Adenoidectomy, Tonsillectomy Additional Past Surgical History / Comment(s): cyst from arm Past Psychological History: Anxiety, Depression Smoking Status: Current every day smoker Past Alcohol Use History: None Reported Past Drug Use History: None Reported General Exam Limitations: no limitations General appearance: alert, in no apparent distress, obese Head exam: Present: atraumatic, normocephalic, normal inspection Eye exam: Present: normal appearance, PERRL, EOMI. Absent: scleral icterus, conjunctival injection, periorbital swelling Neck exam: Present: normal inspection Respiratory exam: Present: normal lung sounds bilaterally. Absent: respiratory distress, wheezes, rales, rhonchi, stridor Cardiovascular Exam: Present: regular rate, normal rhythm, normal heart sounds. Absent: systolic murmur, diastolic murmur, rubs, gallop, clicks Extremities exam: Present: normal inspection, full ROM, normal capillary refill. Absent: tenderness, pedal edema, joint swelling, calf tenderness Neurological exam: Present: alert, oriented X3 Psychiatric exam: Present: normal affect, normal mood Skin exam: Present: warm, dry, intact, normal color. Absent: rash Expanded Type of lesion: Present: abscess (To the right groin measuring approximately 0.5 cm x 0.5 cm, white purulent discharge expressed with minimal palpation.) Course Vital Signs 03/14/21 21:33 Temperature 98.5 F Pulse Rate 90 Respiratory 18 Rate Blood Pressure 113/74 O2 Sat by Pulse 98 Oximetry Medical Decision Making - Medical Decision Making 1-year-old female with a right groin abscess. Culture swab ordered. Patient expressed her concern with another incision and drainage procedure and declined it at this time as she had a traumatizing experience at her previous visit. She noted that she would like antibiotics and to follow-up with dermatology. Case discussed with Dr. Etienne, patient discharge home with follow-up to dermatology and primary care. Disposition Clinical Impression: Abscess of groin, right Disposition: HOME SELF-CARE Condition: Stable Instructions (If sedation given, give patient instructions): Abscess (ED) Additional Instructions: Please return to the Emergency Department if symptoms worsen or any other concerns. Follow-up with primary care and dermatology in the next 1-3 days. Take antibiotics as prescribed until complete. Can continue to self express purulent discharge and use warm compresses along with antibiotic ointment to protect the area. Take, Motrin as needed for pain control. Is patient prescribed a controlled substance at d/c from ED?: No Referrals: Nel Sanders MD [Primary Care Provider] - 1-2 days Time of Disposition: 22:12
[2021-03-14 22:59] VITALS: BP 121/81; PULSE 87
== END 2021-03-14 23:02 | disposition home or self-care (01) ==
LOC: EC 21:27
DX: L02.214 Cutaneous abscess of groin (principal); J45.909 Unspecified asthma, uncomplicated; F17.200 Nicotine dependence, unspecified, uncomplicated; Z88.1 Allergy status to other antibiotic agents; Z88.8 Allergy status to other drugs, medicaments and biological substances
CPT/HCPCS: 87070; 87205; 99283

== ENCOUNTER 2021-12-21 10:07 | Emergency (ER) | payer OTHER ==
[2021-12-21 10:11] VITALS: RESP 18; TEMP 98.2
[2021-12-21] MEDS ORDERED: diphenhydrAMINE 50 MG/ML 1 ML VIAL IVP STA (11:17)
[2021-12-21] MEDS ORDERED: METOCLOPRAMIDE 5 MG/ML 2 ML VIAL IVP STA (11:17)
[2021-12-21] MEDS ORDERED: KETOROLAC 15 MG/ML 1 ML VIAL IVP STA (11:17)
--- NOTE | 2021-12-21 12:09 | CT ---
EXAMINATION TYPE: CT brain wo con DATE OF EXAM: 12/21/2021 COMPARISON: CT dated 12/28/2018 HISTORY: Headache, dizziness CT DLP: 1070.4 mGycm Automated exposure control for dose reduction was used. TECHNIQUE: CT scan of the brain is performed without IV contrast administration. FINDINGS: No acute intracranial hemorrhage. No gross acute cortical infarct. No midline shift, herniation or ve ntriculomegaly. Unremarkable winn-white matter differentiation, basal cisterns, sella and CP angles. No gross space-o ccupying lesion, vasogenic edema or mass effect. Unremarkable orbits. Clear visualized paranasal sinuses and mastoid air cells. Unremarkable calvarial bones. IMPRESSION: No acute intracranial abnormality or gross space-occupying lesion by this nonenhanced CT scan.
--- NOTE | 2021-12-21 13:29 | ED ---
Headache HPI - General Chief Complaint: Headache Stated Complaint: Headache Time Seen by Provider: 12/21/21 11:02 Source: patient, RN notes reviewed Mode of arrival: ambulatory Limitations: no limitations - History of Present Illness Initial Comments: 21-year-old female presents emergency Department with chief complaint of headache. States that she went to bed with a headache states woke up and seemed to worsen. She states she didn't feel well is morning of right-sided headache she states that she fell off balance, didn't feel well states that she felt like she was having difficulty thinking. She states that all had resolved she had no upper or lower extremity symptoms. She states that she's had severe migraines in the past she is currently being worked up by neurology was placed on medication. She states only complaint she has currently is a right-sided headache this is not the worse headache of her life. She states that she's had terrible headaches this is a fairly normal headache at this point. - Related Data Home Medications Medication Instructions Recorded Confirmed Sulfamethox-Tmp 800-160Mg [Bactrim 1 tab PO Q12HR 12/21/21 12/21/21 DS 800-160 mg] Allergies Allergy/AdvReac Type Severity Reaction Status Date / Time levofloxacin [From Levaquin] AdvReac Chest Pain Verified 12/21/21 11:23 sumatriptan [From Imitrex] AdvReac Chest Pain Verified 12/21/21 11:23 sumatriptan succinate AdvReac Chest Pain Verified 12/21/21 11:23 [From Imitrex] Review of Systems ROS Statement: Those systems with pertinent positive or pertinent negative responses have been documented in the HPI. ROS Other: All systems not noted in ROS Statement are negative. Past Medical History Past Medical History: Asthma Additional Past Medical History / Comment(s): migraines ,ovarian cyst History of Any Multi-Drug Resistant Organisms: None Reported Past Surgical History: Adenoidectomy, Tonsillectomy Additional Past Surgical History / Comment(s): cyst from arm Past Psychological History: Anxiety, Depression Smoking Status: Current every day smoker Past Alcohol Use History: None Reported Past Drug Use History: None Reported General Exam Limitations: no limitations General appearance: alert, in no apparent distress Head exam: Present: atraumatic, normocephalic, normal inspection Eye exam: Present: normal appearance, PERRL, EOMI. Absent: scleral icterus, conjunctival injection, periorbital swelling ENT exam: Present: normal exam, normal oropharynx, mucous membranes moist Neck exam: Present: normal inspection, full ROM. Absent: tenderness, meningismus, lymphadenopathy Respiratory exam: Present: normal lung sounds bilaterally. Absent: respiratory distress, wheezes, rales, rhonchi, stridor Cardiovascular Exam: Present: regular rate, normal rhythm, normal heart sounds. Absent: systolic murmur, diastolic murmur, rubs, gallop, clicks GI/Abdominal exam: Present: soft, normal bowel sounds. Absent: distended, tenderness, guarding, rebound, rigid Neurological exam: Present: alert, oriented X3, CN II-XII intact, reflexes normal. Absent: motor sensory deficit Skin exam: Present: warm, dry, intact, normal color. Absent: rash Course Vital Signs 12/21/21 10:07 Temperature 98.2 F Pulse Rate 107 H Respiratory 18 Rate Blood Pressure 139/90 O2 Sat by Pulse 98 Oximetry Medical Decision Making - Medical Decision Making CT was obtained given symptoms of difficulty thinking, reports the speech issues. Does resolved prior arrival CT was negative patient was ordered IV medications unable temp align those patient states that her headache is resolved she has no symptoms and feels comfortable discharge. Disposition Clinical Impression: Migraine headache Disposition: HOME SELF-CARE Condition: Stable Instructions (If sedation given, give patient instructions): Acute Headache (ED) Additional Instructions: Please return to the Emergency Department if symptoms worsen or any other concerns. Is patient prescribed a controlled substance at d/c from ED?: No Referrals: Nel Sanders MD [Primary Care Provider] - 1-2 days Time of Disposition: 13:29
[2021-12-21 14:02] VITALS: BP 134/88; PULSE 97
== END 2021-12-21 13:45 | disposition home or self-care (01) ==
LOC: EC 10:07
DX: G43.909 Migraine, unspecified, not intractable, without status migrainosus (principal); J45.909 Unspecified asthma, uncomplicated; F17.200 Nicotine dependence, unspecified, uncomplicated; Z88.1 Allergy status to other antibiotic agents; Z88.9 Allergy status to unspecified drugs, medicaments and biological substances
CPT/HCPCS: 70450; 99284

== ENCOUNTER 2022-09-27 16:30 | Emergency (ER) | payer OTHER ==
[2022-09-27 16:44] VITALS: TEMP 98
[2022-09-27 17:06] LABS: Basophils % (A) 1 %; Eosinophils # (A) 0.1 k/uL (0-0.7); Eosinophils % (A) 2 %; HCT 39.4 % (34.0-46.0); HGB 13.9 gm/dL (11.4-16.0); Lymphocytes # (A) 2.2 k/uL (1.0-4.8); Lymphocytes % (A) 29 %; MCH 31.7 pg (25.0-35.0); MCHC 35.1 g/dL (31.0-37.0); MCV 90.3 fL (80.0-100.0); Mean Platelet Volume 7.5; Monocytes # (A) 0.3 k/uL (0-1.0); Monocytes % (A) 4 %; Neutrophils # (A) 4.8 k/uL (1.3-7.7); Neutrophils % (A) 64 %; Platelet Count 236 k/uL (150-450); RBC 4.37 m/uL (3.80-5.40); RDW 12.4 % (11.5-15.5); WBC 7.6 k/uL (3.8-10.6)
[2022-09-27 17:20] LABS: ALT 17 U/L (4-34); AST 18 U/L (14-36); African American GFR (CKD) >90 (>60 ml/min/1.73 sqM); Albumin 4.4 g/dL (3.5-5.0); Alkaline Phosphatase 81 U/L (38-126); Amylase 44 U/L (30-110); Anion Gap 10 mmol/L; Blood Urea Nitrogen 10 mg/dL (7-17); Calcium 9.3 mg/dL (8.4-10.2); Carbon Dioxide 24 mmol/L (22-30); Chloride 106 mmol/L (98-107); Glucose 83 mg/dL (74-99); Lipase 54 U/L (23-300); Non-African American GFR(CKD) >90 (>60 ml/min/1.73 sqM); Potassium 4.2 mmol/L (3.5-5.1); Sodium 140 mmol/L (137-145); Total Bilirubin 0.3 mg/dL (0.2-1.3); Total Protein 7.3 g/dL (6.3-8.2)
[2022-09-27 17:26] LABS: Appearance,Urine Clear (Clear); Bilirubin,Urine Negative (Negative); Blood,Urine Small (Negative); Color,Urine Yellow; Glucose,Urine (UA) Negative (Negative); Ketones,Urine Negative (Negative); Leukocyte Esterase,Urine Small (Negative); Mucus,Urine Rare /hpf; Nitrite,Urine Negative (Negative); PH, Urine 6.5 (5.0-8.0); Protein,Urine Negative (Negative); RBC,Urine 26 /hpf (0-5); Specific Gravity,Urine 1.017 (1.001-1.035); Squamous Epithelial Cell,Urine <1 /hpf (0-4); Urobilinogen,Urine <2.0 mg/dL (<2.0); WBC,Urine 1 /hpf (0-5)
[2022-09-27] MEDS ORDERED: KETOROLAC 15 MG/ML 1 ML VIAL IVP STA (17:53)
--- NOTE | 2022-09-27 17:57 | ED ---
Abdominal Pain HPI - General Chief Complaint: Abdominal Pain Stated Complaint: rt side pain Time Seen by Provider: 09/27/22 17:47 Source: patient Mode of arrival: ambulatory Limitations: no limitations - History of Present Illness MD Complaint: flank pain Onset/Timin -: hour(s) Location: R flank Radiation: none Migration to: no migration Severity: severe Quality: burning Consistency: constant Improves With: nothing Worsens With: nothing Associated Symptoms: nausea - Related Data Home Medications Medication Instructions Recorded Confirmed [id number] 1 tab PO Q4H PRN 09/27/22 09/27/22 [Excedrin] Allergies Allergy/AdvReac Type Severity Reaction Status Date / Time levofloxacin [From Levaquin] AdvReac Chest Pain Verified 09/27/22 19:05 & High BP sumatriptan [From Imitrex] AdvReac Chest Pain Verified 09/27/22 19:05 & High BP sumatriptan succinate AdvReac Chest Pain Verified 09/27/22 19:05 [From Imitrex] & High BP Review of Systems ROS Statement: Those systems with pertinent positive or pertinent negative responses have been documented in the HPI. ROS Other: All systems not noted in ROS Statement are negative. Constitutional: Denies: fever, chills Respiratory: Denies: cough, dyspnea Cardiovascular: Denies: chest pain, palpitations, edema Gastrointestinal: Reports: as per HPI, abdominal pain. Denies: nausea, vomiting, diarrhea, constipation, melena, hematochezia Genitourinary: Denies: dysuria, frequency, hematuria, abnormal menses Musculoskeletal: Denies: back pain Skin: Denies: rash Neurological: Denies: headache, weakness, numbness Past Medical History Past Medical History: Asthma Additional Past Medical History / Comment(s): migraines ,ovarian cyst History of Any Multi-Drug Resistant Organisms: None Reported Past Surgical History: Adenoidectomy, Tonsillectomy Additional Past Surgical History / Comment(s): cyst from arm Past Psychological History: Anxiety, Depression Smoking Status: Current every day smoker, V[employer] Past Alcohol Use History: None Reported Past Drug Use History: None Reported General Exam Limitations: no limitations General appearance: alert, in no apparent distress Head exam: Present: atraumatic, normocephalic Eye exam: Present: normal appearance. Absent: scleral icterus, conjunctival injection ENT exam: Present: normal oropharynx Respiratory exam: Present: normal lung sounds bilaterally. Absent: respiratory distress, wheezes, rales, rhonchi, stridor Cardiovascular Exam: Present: regular rate, normal rhythm, normal heart sounds. Absent: systolic murmur, diastolic murmur, rubs, gallop GI/Abdominal exam: Present: soft. Absent: distended, tenderness, guarding, rebound, rigid, mass, pulsatile mass, hernia Extremities exam: Present: normal inspection, normal capillary refill. Absent: pedal edema, calf tenderness Back exam: Present: normal inspection. Absent: CVA tenderness (R), CVA tenderness (L) Neurological exam: Present: alert Skin exam: Present: warm, dry, intact, normal color. Absent: rash Course Vital Signs 09/27/22 16:40 Temperature 98 F Pulse Rate 102 H Respiratory 20 Rate Blood Pressure 144/100 O2 Sat by Pulse 97 Oximetry Medical Decision Making - Lab Data Result diagrams: 09/27/22 16:52 09/27/22 16:52 Lab Results 09/27/22 09/27/22 09/27/22 Range/Units 16:52 16:52 17:00 WBC 7.6 (3.8-10.6) k/uL RBC 4.37 (3.80-5.40) m/uL Hgb 13.9 (11.4-16.0) gm/dL Hct 39.4 (34.0-46.0) % MCV 90.3 (80.0-100.0) fL MCH 31.7 (25.0-35.0) pg MCHC 35.1 (31.0-37.0) g/dL RDW 12.4 (11.5-15.5) % Plt Count 236 (150-450) k/uL MPV 7.5 Neutrophils % 64 % Lymphocytes % 29 % Monocytes % 4 % Eosinophils % 2 % Basophils % 1 % Neutrophils # 4.8 (1.3-7.7) k/uL Lymphocytes # 2.2 (1.0-4.8) k/uL Monocytes # 0.3 (0-1.0) k/uL Eosinophils # 0.1 (0-0.7) k/uL Basophils # 0.0 (0-0.2) k/uL Sodium 140 (137-145) mmol/L Potassium 4.2 (3.5-5.1) mmol/L Chloride 106 (98-107) mmol/L Carbon Dioxide 24 (22-30) mmol/L Anion Gap 10 mmol/L BUN 10 (7-17) mg/dL Creatinine 0.63 (0.52-1.04) mg/dL Est GFR (CKD-EPI)AfAm >90 (>60 ml/min/1.73 sqM) Est GFR (CKD-EPI)NonAf >90 (>60 ml/min/1.73 sqM) Glucose 83 (74-99) mg/dL Calcium 9.3 (8.4-10.2) mg/dL Total Bilirubin 0.3 (0.2-1.3) mg/dL AST 18 (14-36) U/L ALT 17 (4-34) U/L Alkaline Phosphatase 81 (38-126) U/L Total Protein 7.3 (6.3-8.2) g/dL Albumin 4.4 (3.5-5.0) g/dL Amylase 44 (30-110) U/L Lipase 54 (23-300) U/L Urine Color Yellow Urine Appearance Clear (Clear) Urine pH 6.5 (5.0-8.0) Ur Specific [place] 1.017 (1.001-1.035) Urine Protein Negative (Negative) Urine Glucose (UA) Negative (Negative) Urine Ketones Negative (Negative) Urine Blood Small H (Negative) Urine Nitrite Negative (Negative) Urine Bilirubin Negative (Negative) Urine Urobilinogen <2.0 (<2.0) mg/dL Ur Leukocyte Esterase Small H (Negative) Urine RBC 26 H (0-5) /hpf Urine WBC 1 (0-5) /hpf Ur Squamous Epith Cells <1 (0-4) /hpf Urine Mucus Rare H (None) /hpf Urine HCG, Qual (Not Detectd) 09/27/22 Range/Units 17:00 WBC (3.8-10.6) k/uL RBC (3.80-5.40) m/uL Hgb (11.4-16.0) gm/dL Hct (34.0-46.0) % MCV (80.0-100.0) fL MCH (25.0-35.0) pg MCHC (31.0-37.0) g/dL RDW (11.5-15.5) % Plt Count (150-450) k/uL MPV Neutrophils % % Lymphocytes % % Monocytes % % Eosinophils % % Basophils % % Neutrophils # (1.3-7.7) k/uL Lymphocytes # (1.0-4.8) k/uL Monocytes # (0-1.0) k/uL Eosinophils # (0-0.7) k/uL Basophils # (0-0.2) k/uL Sodium (137-145) mmol/L Potassium (3.5-5.1) mmol/L Chloride (98-107) mmol/L Carbon Dioxide (22-30) mmol/L Anion Gap mmol/L BUN (7-17) mg/dL Creatinine (0.52-1.04) mg/dL Est GFR (CKD-EPI)AfAm (>60 ml/min/1.73 sqM) Est GFR (CKD-EPI)NonAf (>60 ml/min/1.73 sqM) Glucose (74-99) mg/dL Calcium (8.4-10.2) mg/dL Total Bilirubin (0.2-1.3) mg/dL AST (14-36) U/L ALT (4-34) U/L Alkaline Phosphatase (38-126) U/L Total Protein (6.3-8.2) g/dL Albumin (3.5-5.0) g/dL Amylase (30-110) U/L Lipase (23-300) U/L Urine Color Urine Appearance (Clear) Urine pH (5.0-8.0) Ur Specific [place] (1.001-1.035) Urine Protein (Negative) Urine Glucose (UA) (Negative) Urine Ketones (Negative) Urine Blood (Negative) Urine Nitrite (Negative) Urine Bilirubin (Negative) Urine Urobilinogen (<2.0) mg/dL Ur Leukocyte Esterase (Negative) Urine RBC (0-5) /hpf Urine WBC (0-5) /hpf Ur Squamous Epith Cells (0-4) /hpf Urine Mucus (None) /hpf Urine HCG, Qual Not Detected (Not Detectd) Disposition Clinical Impression: Abdominal pain Disposition: HOME SELF-CARE Condition: Good Instructions (If sedation given, give patient instructions): Abdominal Pain (ED) Is patient prescribed a controlled substance at d/c from ED?: No Referrals: Nel Sanders MD [Primary Care Provider] - 1-2 days
--- NOTE | 2022-09-27 19:08 | CT ---
EXAMINATION TYPE: CT abdomen pelvis wo con CT DLP: 639.8 mGycm, Automated exposure control for dose reduction was used. DATE OF EXAM: 09/27/2022 6:21 PM COMPARISON: CT abdomen pelvis most recent from 02/28/2019 CLINICAL INDICATION:Female, 21 years old with history of right flank pain; RT side flank/ side pain TECHNIQUE: Axial CT of the abdomen and pelvis. Sagittal and coronal reformats were created on a [employer] workstation. Contrast used: None Oral contrast used: without Oral Contrast FINDINGS: LOWER CHEST: Unremarkable ABDOMEN LIVER: Unremarkable GALLBLADDER AND BILE DUCTS: Unremarkable. PANCREAS: Unremarkable. SPLEEN: Unremarkable. ADRENAL GLANDS: Unremarkable. KIDNEYS AND URETERS: No evidence of hydronephrosis or renal calculus. The ureters are unremarkable. PELVIS BLADDER: Unremarkable REPRODUCTIVE: Interval reduction in right pelvic cyst seen on prior on 02/28/2019 ABDOMEN & PELVIS STOMACH AND BOWEL: No evidence of bowel obstruction. Moderate to large stool burden throughout the ri ght colon. Appendix is not definitively visualized. No secondary signs of appendicitis. PERITONEUM: No evidence of pneumoperitoneum or free fluid. VASCULATURE: No evidence of aortic aneurysm. MUSCULOSKELETAL: No acute osseous abnormalities LYMPH NODES: No gross evidence for lymphadenopathy. SOFT TISSUE/ABDOMINAL WALL: Unremarkable IMPRESSION: 1. No evidence for obstructive uropathy or urolithiasis. No evidence for acute abdominal process. 2. Appendix is not definitively visualized. No secondary signs of appendicitis.
[2022-09-27 19:23] VITALS: BP 140/81; PULSE 98; RESP 18
== END 2022-09-27 19:28 | disposition home or self-care (01) ==
LOC: EC 16:30
DX: R52 Pain, unspecified (principal); J45.909 Unspecified asthma, uncomplicated; F41.9 Anxiety disorder, unspecified; F32.A Depression, unspecified; F17.200 Nicotine dependence, unspecified, uncomplicated; Z88.1 Allergy status to other antibiotic agents
CPT/HCPCS: 36415; 80053; 82150; 83690; 85025; 81001; 81025; 74176; 99284; 96374; J1885